=== PATIENT | male | born 1990 | race Caucasian/White ===

== ENCOUNTER 2021-10-14 20:45 | Emergency (ER) | payer SELFPAY ==
[2021-10-14 20:54] VITALS: BP 95/65; PULSE 72; RESP 16; TEMP 36.5; O2SAT 100
--- NOTE | 2021-10-14 20:59 | XRR_ITS ---
PROCEDURE INFORMATION: Exam: XR Right Hand Exam date and time: 10/14/2021 10:57 PM Age: 31 years old Clinical indication: Injury or trauma; Other: Laceration; Hand; Right; Additional info: Fell and right hand went through a glass causing laceration TECHNIQUE: Imaging protocol: Radiologic exam of the Right hand. Views: 3 or more views. COMPARISON: No relevant prior studies available. FINDINGS: Bones/joints: Dorsal metacarpal soft tissue swelling. No obvious large soft tissue radiopaque foreign body however details are somewhat limited with artifacts relating to skin dressing material. If there is strong clinical concern, follow-up exam after removal of dressing material may also be considered. No acute fracture dislocation. Soft tissues: See Bones/joints finding. Other findings: Three views submitted. XR/XR hand RT min 3V* [id number] IMPRESSION: No acute fracture. Other findings as above.
--- NOTE | 2021-10-14 23:08 | W.ED.WOUNDLC ---
HPI - Wound/Laceration General: Chief Complaint: Wound/Laceration Stated Complaint: Deep cuts to right hand Time Seen by Provider: 10/14/21 22:52 History of Present Illness: Patient is a 31-year-old male comes to the ED with multiple lacerations to right hand. Patient was installing a window and he fell backwards and hit his right hand on glass part of the window breaking it causing lacerations to his right hand. Patient is not up-to-date on his tetanus. Associated symptoms: Denies chills, fever(s), nausea or vomiting Review of Systems Const: Denies: fever(s), chills or fatigue Eyes: Denies: change in vision or eye discomfort ENMT: Denies: throat pain, odynophagia, nasal discharge or nasal congestion Card: Denies: chest pain, palpitations, edema, swelling of feet/ankles, dyspnea on exertion or orthopnea Resp: Denies: dyspnea, productive cough or non-productive cough GI: Denies: abdominal pain, nausea, vomiting, diarrhea, constipation or hematochezia : Denies: flank pain, difficulty urinating, dysuria or hematuria Musc: Denies: neck pain, back pain or extremity swelling Skin/Breast: Reports: new lesions (Multiple lacerations to right hand); Denies: rash Neuro: Denies: headache(s), numbness in extremities or weakness in extremities PFS ED PFSH: Medical History No pertinent family history Surgical History No pertinent past surgical history Physical Exam Const: COMMON NORMALS: no acute distress, patient oriented x3 and alert GENERAL APPEARANCE: cooperative and comfortable HENMT: COMMON NORMALS: normocephalic HEAD & SCALP: normocephalic MOUTH: Normal oral and palatal mucosa present THROAT: posterior oropharynx normal and uvula midline Neck/C-Spine: COMMON NORMALS: supple GENERAL: Yes normal visual inspection Resp: COMMON NORMALS: normal respiratory effort, No retractions, No use of accessory muscles and clear to auscultation bilaterally AUSCULTATION: clear to auscultation bilaterally Cardio: COMMON NORMALS: regular rate, regular rhythm, S1 normal heart sound present, S2 normal heart sound present, No gallops present (Cardio), No clicks present (Cardio), No murmurs present (Cardio) and Peripheral pulses 2+ throughout RATE: regular rate RHYTHM: regular rhythm HEART SOUNDS: S1 normal heart sound present and S2 normal heart sound present PERIPHERAL PULSES: Peripheral pulses 2+ throughout GI: COMMON NORMALS: Normal to inspection, nondistended, normoactive bowel sounds present, Soft to palpation, non-tender and no masses PALPATION: Yes Soft to palpation : COMMON NORMALS: Yes no CVA tenderness BLADDER/KIDNEY EXAM: Yes no CVA tenderness Back/Pelvis: COMMON NORMALS: no CVA tenderness Extremity: NARRATIVE EXTREMITY EXAM: Patient has multiple lacerations on right hand. He has 1 large 8 cm irregular shaped laceration on dorsal aspect of right hand with no active bleeding. He has a 2 cm skin flap laceration to dorsal aspect of hand. He has a 2 cm linear laceration over dorsal aspect of third digit PIP joint. Patient has full range of motion in hands and fingers and no suspicion for any tendon laceration noted. Neuro: COMMON NORMALS: patient oriented x3 and moves all extremities SENSORIUM/ORIENTATION: Yes alert Skin: GENERAL SKIN EXAM: dry skin Procedures Laceration Laceration 1: Site: hand (dorsal aspect of right hand) Side (If applicable): right Size (cm): 8 Description: irregular Depth: simple, single layer Amount of anesthesia used (mL): 8 Pre-repair: irrigated extensively (Irrigated extensively with normal saline and beta iodine wash.) Skin layer closed with: nylon Size (cm): 3-0 Number of sutures: 11 Technique: simple, interrupted Laceration 2: Site: hand (Dorsal aspect of hand) Side (If applicable): right Size (cm): 2 Description: flap Depth: simple, single layer Local Anesthetic: lidocaine 1% and with epi Amount of anesthesia used (mL): 3 Pre-repair: irrigated extensively (With normal saline and beta iodine wash) Skin layer closed with: nylon Size (cm): 3-0 Number of sutures: 4 Technique: simple, interrupted Laceration 3: Site: hand (Right hand third digit PIP joint) Side (If applicable): right Size (cm): 2 Description: linear Depth: simple, single layer Local Anesthetic: lidocaine 1% and with epi Amount of anesthesia used (mL): 4 Pre-repair: irrigated extensively (Irrigated extensively with normal saline and beta iodine wash) Skin layer closed with: nylon Size (cm): 3-0 Number of sutures: 3 Technique: simple, interrupted Course Vital Signs: Vital signs: Vital Signs Temperature 97.7 F 10/14/21 20:54 Pulse Rate 88 10/15/21 01:37 Respiratory Rate 16 10/15/21 01:37 Blood Pressure 112/79 10/15/21 01:37 Pulse Oximetry 100 10/14/21 20:54 MDM - Wound/Laceration Medical Decision Making Patient is a 31-year-old male comes to the ED with multiple lacerations of right hand after fell and his right hand hit a glass window broke through. Patient was given updated tetanus. X-ray of right hand showed no acute fractures or foreign body seen. Patient had 3 lacerations on right hand and they were cleaned and irrigated and lidocaine 1% with epi was used as local and sutures were used to close laceration sites. See procedure notes for details. Patient was given dose of antibiotic here in the ED. He was stable for discharge home and instructed on how to care for laceration sites. He was sent home with a prophylactic antibiotic prescription. follow-up with PCP or ED in the next 7 to 10 days to have sutures removed. Return to ED precautions given. Patient understood and agreed with plan. Lab Data Radiology Impressions Hand X-Ray 10/14/21 20:59 IMPRESSION: No acute fracture. Other findings as above. Discharge Plan Discharge Patient Disposition: Home Clinical Impression: Laceration of multiple sites of hand and fingers Qualifiers: Encounter type: initial encounter Laterality: right Qualified Code(s): S61.411A - Laceration without foreign body of right hand, initial encounter Condition: Stable Prescriptions: New Bactrim DS 800-160 mg tablet 1 tab PO BID 5 Days Qty: 10 0RF ibuprofen 800 mg tablet 800 mg PO Q8H PRN (Reason: pain) Qty: 30 0RF Discharge Orders: Discharge ED (Routine); Ordered 10/15/21 Ordered By: Parth Elias Discharge Diet: Regular Discharge Activity: Limit activity as instructed Patient Instructions: Laceration (DC), Finger Laceration (ED) Activity Restrictions/Additional Instructions: Take full course of antibiotics as prescribed. Keep laceration site clean and dry for the next 48 hours. Clean laceration sites with soap and water daily then applied thin layer triple antibiotic ointment on them and keep covered with bandage. Watch for signs of infection such as redness, warmth, increased tenderness and puslike drainage. If you see the signs of infection return to the ED, urgent care or PCP for reevaluation. call your PCP to schedule a follow-up appointment for reevaluation and suture removal in about 7- 10 days. Continue taking all home meds. Follow discharge plans as discussed. You can return to the ED if symptoms worsen. 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
[2021-10-15] MEDS: tetanus-dipt-pertussis 0.5 mL SDV IM (00:01)
[2021-10-15] MEDS: HYDROcodone-acetaminophen 7.5-325 mg Tablet 1 TAB PO (00:03)
[2021-10-15 00:57] VITALS: BP 112/79; PULSE 88; RESP 16
[2021-10-15] MEDS: neomycin-poly-bacitracin oint 28 gm 1 APPLIC TOPICAL (01:15)
[2021-10-15] MEDS: sulfamethoxazole-trimeth DS 160-800 mg Tablet 1 TAB PO (01:15)
[2021-10-15 01:37] VITALS: BP 112/79; PULSE 88; RESP 16
== END 2021-10-15 01:39 | disposition home or self-care (01) ==
PROVIDERS: Emergency Provider Physician Assistant
DX: S61.411A Laceration without foreign body of right hand, initial encounter (principal); W25.XXXA Contact with sharp glass, initial encounter; Z23 Encounter for immunization
CPT/HCPCS: 12004; 73130; 90471; 90715; 99283; A6446

== ENCOUNTER → 2025-01-26 10:55 | Outpatient (BNVA) | payer MEDICAID, SELFPAY | PROVIDERS: Visit Provider Emergency Medicine | DX: Z20.2 Contact with and (suspected) exposure to infections with a predominantly sexual mode of transmission (principal) | CPT/HCPCS: 81000; 86592; 87491; 87591; 87661; 87806 ==